=== PATIENT | female | born 1980 | race Caucasian/White ===

== ENCOUNTER 2017-10-31 12:38 | Emergency (ER) | payer OTHER, SELFPAY ==
[2017-10-31] MEDS ORDERED: Ibuprofen 800 MG TAB ONE (12:58)
[2017-10-31] MEDS ORDERED: traMADol HCl 50 MG TAB ONE (12:58)
[2017-10-31] MEDS ORDERED: Bupivacaine 0.5% 10 ML VIAL ONE (13:41)
[2017-10-31] MEDS ORDERED: Ketorolac Tromethamine 30 MG/ML VIAL ONE (13:48)
[2017-10-31] MEDS ORDERED: Bacitracin Zinc 1 Packet ONE (14:19)
[2017-10-31] MEDS ORDERED: AMOXicillin 250 MG CAP ONE (14:23)
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
== END 2017-10-31 14:30 | disposition home or self-care (01) ==
LOC: BURERS 12:38
DX: S01.21XA Laceration without foreign body of nose, initial encounter (principal); S00.83XA Contusion of other part of head, initial encounter; F10.10 Alcohol abuse, uncomplicated; M47.9 Spondylosis, unspecified; F17.210 Nicotine dependence, cigarettes, uncomplicated; W11.XXXA Fall on and from ladder, initial encounter
CPT/HCPCS: 12013; 70450; 70486; 72125; 96372; J1885; J3490

== ENCOUNTER 2017-11-08 13:18 | Emergency (ER) | payer SELFPAY | END 2017-11-08 14:01 | disposition home or self-care (01) | LOC: BURERS 13:18 | DX: H60.91 Unspecified otitis externa, right ear (principal); F17.210 Nicotine dependence, cigarettes, uncomplicated; Z79.899 Other long term (current) drug therapy | CPT/HCPCS: 99282 ==

== ENCOUNTER 2017-11-21 00:52 | Emergency (ER) | payer SELFPAY ==
[2017-11-21] MEDS ORDERED: Lidocaine 1% w/Epinephrine 1:100K 30 ML VIAL ONE (01:14)
[2017-11-21] MEDS ORDERED: Bacitracin Zinc 1 Packet ONE (01:35)
== END 2017-11-21 01:46 | disposition home or self-care (01) ==
LOC: BURERS 00:52
DX: S71.111A Laceration without foreign body, right thigh, initial encounter (principal); F17.210 Nicotine dependence, cigarettes, uncomplicated; W25.XXXA Contact with sharp glass, initial encounter; Y92.009 Unspecified place in unspecified non-institutional (private) residence as the place of occurrence of the external cause
CPT/HCPCS: 12002; J2001

== ENCOUNTER 2018-05-29 13:03 | Emergency (ER) | payer SELFPAY | END 2018-05-29 13:42 | disposition home or self-care (01) | LOC: BURERS 13:03 | DX: A09 Infectious gastroenteritis and colitis, unspecified (principal); F17.210 Nicotine dependence, cigarettes, uncomplicated; F32.9 Major depressive disorder, single episode, unspecified; Z79.899 Other long term (current) drug therapy | CPT/HCPCS: 99283 ==